=== PATIENT | male | born 1970 | race Caucasian/White ===

== ENCOUNTER 2024-05-18 06:50 | Day surgery (SDC) | payer OTHER ==
[2024-05-17 11:17] VITALS: BMI 29.8
[2024-05-18] MEDS ORDERED: Ketorolac Tromethamine 30 MG (1 mL) VIAL ONE (08:49)
[2024-05-18] MEDS ORDERED: Ondansetron PF 4 MG/2 ML Vial ONE (08:49)
[2024-05-18] MEDS ORDERED: Dexamethasone 20 MG/5 ML VIAL ONE (08:49)
[2024-05-18] MEDS ORDERED: fentaNYL 50 mcg/mL 1 mL Vial ONE ×2 (08:49→10:25)
[2024-05-18] MEDS ORDERED: Lidocaine 1% PF 5 ML VIAL ONE (08:49)
[2024-05-18] MEDS ORDERED: Midazolam HCl 2 mg/2 ml Vial ONE (08:49)
[2024-05-18] MEDS ORDERED: Glycopyrrolate 0.2 MG/ML 5 ML SYRINGE ONE (08:49)
[2024-05-18] MEDS ORDERED: PROPOFOL 20 ML ONE (08:49)
[2024-05-18] MEDS ORDERED: CEFAZOLIN 2 GM VIAL ONE (08:56)
[2024-05-18] MEDS ORDERED: Bupivacaine PF 0.5% 30 ML VIAL ONE (09:33)
[2024-05-18] MEDS ORDERED: HYDROcodone/Acetaminophen 5/325 mg Tablet ONE (11:05)
== END 2024-05-18 11:40 | disposition home or self-care (01) ==
LOC: CSHSDC 06:50
PROVIDERS: ATTEND Podiatrist Foot & Ankle Surgery
PROC: 0SRG0JZ Replacement of Left Ankle Joint with Synthetic Substitute, Open Approach (ICD-10-PCS; principal; 2024-05-18)
DX: M20.22 Hallux rigidus, left foot (principal); I10 Essential (primary) hypertension; R19.7 Diarrhea, unspecified; K21.9 Gastro-esophageal reflux disease without esophagitis
CPT/HCPCS: 93005; 93010; C1776; J0665; J1100; J1885; J2250; J2405; J2704; J3010